=== PATIENT | female | born 1955 | race Caucasian/White ===

== ENCOUNTER 2018-10-10 12:07 | Day surgery (SDC) | payer OTHER ==
[~2018-10-10] VITALS: Ht 160 cm; Wt 86.2 kg
[~2018-10-10 12:07] MED LIST: ALBU90I INH; Alprazolam2 MG PO; Aspirin EC81 MG PO; CODGUAEL PO; Crestor20 MG PO; Dyazide 37.5-21 EACH PO; LOPE2C PO; LORA1 PO; LOVA40 PO; MAXIDE; MULVITA PO; NADO20 PO; NADO40 PO; POTCHL10ER PO; ROSU10TA; SERT50 PO; TRIHYD253B PO; [UNRECOGNIZED DRUG - OTHER] PO
--- NOTE | 2018-10-10 13:14 | NUR ---
10/10/18 1314 Mirna Harding PATIENT IS MENTALLY DISABLED, MOST OF THE QUESTIONS WERE ANSWRED BY HER SISTER. PATIENT IS VERY COOPERATIVE AND APPEARS HAPPY AND COMFORTABLE. CALL LIGHT AT BEDSIDE, SISTER WITH PATIENT, NO NEEDS AT THIS TIME
--- NOTE | 2018-10-10 15:23 | NUR ---
10/10/18 1523 Mirna Harding SALINE 5CC INJECTED AND EPINEPHRINE 6CC INJECTED INTO LARGE POLYP IN SIGMOID. WHEN THE EPINEPHRINE WAS INJECTED INTO THE POLYP AREA, THE PATIENT DID HAVE AN INCREASE IN HER BLOOD PRESSURE AND HEART RATE, HOWEVER THE PATIENT TOLERATED THIS ENTIRE PROCESS WITHOUT PROBLEMS. PATIENT DID WAKE UP BEFORE THE END OF THE PROCEDURE AND I WAS ABLE TO TALK WITH HER AND KEEP HER STILL WHILE THE DOCTOR FINISHED RESECTING A POLYP. PATIENT TOLERATED THE PROCEDURE.
== END 2018-10-10 15:10 | disposition home or self-care (01) ==
LOC: ORSCSDS 12:07
PROVIDERS: Internal Medicine Gastroenterology
PROC: 0DBN8ZX Excision of Sigmoid Colon, Via Natural or Artificial Opening Endoscopic, Diagnostic (ICD-10-PCS; principal; 2018-10-10 13:30)
PROC: 0DBM8ZX Excision of Descending Colon, Via Natural or Artificial Opening Endoscopic, Diagnostic (ICD-10-PCS; principal; 2018-10-10 13:30)
PROC: 0DBH8ZX Excision of Cecum, Via Natural or Artificial Opening Endoscopic, Diagnostic (ICD-10-PCS; principal; 2018-10-10 13:30)
DX: K62.5 Hemorrhage of anus and rectum (principal); D12.0 Benign neoplasm of cecum; D12.4 Benign neoplasm of descending colon; D12.5 Benign neoplasm of sigmoid colon; K63.5 Polyp of colon; I10 Essential (primary) hypertension; E78.5 Hyperlipidemia, unspecified; F79 Unspecified intellectual disabilities; Z79.899 Other long term (current) drug therapy
CPT/HCPCS: 88305; J7120

== ENCOUNTER 2019-06-14 09:18 | Day surgery (SDC) | payer OTHER ==
[~2019-06-14] VITALS: Ht 162.6 cm; Wt 86.6 kg
[~2019-06-14 09:18] MED LIST changes: +ATEN50 PO; +MEGA MULTIVIT PO
== END 2019-06-14 11:25 | disposition home or self-care (01) ==
LOC: ORSCSDS 09:18
PROVIDERS: Internal Medicine Gastroenterology
PROC: 0DBN8ZX Excision of Sigmoid Colon, Via Natural or Artificial Opening Endoscopic, Diagnostic (ICD-10-PCS; principal; 2019-06-14 10:30)
DX: Z12.11 Encounter for screening for malignant neoplasm of colon (principal); Z86.010 Personal history of colon polyps; K64.8 Other hemorrhoids; K57.30 Diverticulosis of large intestine without perforation or abscess without bleeding; I10 Essential (primary) hypertension; E03.9 Hypothyroidism, unspecified; E78.00 Pure hypercholesterolemia, unspecified; F41.9 Anxiety disorder, unspecified; Z79.82 Long term (current) use of aspirin; Z79.899 Other long term (current) drug therapy
CPT/HCPCS: 88305; J2704; J7120

== ENCOUNTER → 2020-12-04 | Outpatient (CLI) | payer OTHER ==
[2020-12-04 13:54] LABS: BASOPHILS ABSOLUTE AUTO 0.08 K/mm3 (0.00-0.23); BASOPHILS PERCENT AUTO 0 % (0-2); EOSINOPHILS ABSOLUTE AUTO 0.32 K/mm3 (0.00-0.68); EOSINOPHILS PERCENT AUTO 2 % (0-6); Hematocrit 42.3 % (33.0-51.0); Hemoglobin 14.1 g/dL (11.5-16.0); IMMATURE GRAN ABSOLUTE AUTO 0.13 K/mm3 (0.00-0.10); IMMATURE GRAN PERCENT AUTO 1 % (0-1); LYMPHOCYTES ABSOLUTE AUTO 1.34 K/mm3 (0.84-5.20); LYMPHOCYTES PERCENT AUTO 7 % (21-46); MONOCYTES ABSOLUTE AUTO 1.24 K/mm3 (0.16-1.47); MONOCYTES PERCENT AUTO 6 % (4-13); Mean Corpuscular HGB 27.6 pg (26.0-34.0); Mean Corpuscular HGB Conc 33.3 g/dL (31.5-36.5); Mean Corpuscular Volume 83 fL (80-100); Mean Platelet Volume 9.7 fL (9.1-12.4); NEUTROPHILS ABSOLUTE AUTO 16.97 K/mm3 (1.96-9.15); NEUTROPHILS PERCENT AUTO 85 % (41-73); Platelet Count 295 K/mm3 (150-400); RDW Standard Deviation 39.2 fL (35.1-46.3); White Blood Cell Count 20.08 K/mm3 (4.00-11.30)
[2020-12-04 14:06] LABS: Albumin/Globulin Ratio 0.6 (0.8-1.8); Bilirubin, Total 0.3 mg/dL (0.1-1.0); Bun/Creatinine Ratio 16.2 (12.0-20.0); Calcium, Blood 9.5 mg/dL (8.5-10.1); Creatinine, Blood 1.6 mg/dL (0.40-1.00); Globulin, Blood 4.9 g/dL (2.2-4.0); Potassium, Blood 3.6 mmol/L (3.5-5.5); Total Protein, Blood 7.9 g/dL (6.4-8.2)
== END | disposition home or self-care (01) ==
LOC: LAB SHORT 13:34 → LAB 13:34
PROVIDERS: Internal Medicine Hematology & Oncology
DX: D72.829 Elevated white blood cell count, unspecified (principal)
CPT/HCPCS: 80053; 85025

== ENCOUNTER → 2020-12-05 | Outpatient (CLI) | payer OTHER ==
[2020-12-05 15:42] LABS: International Normalized Ratio 1.26; Prothrombin Time Results 13.3 Sec (9.7-11.5)
== END | disposition home or self-care (01) ==
LOC: LAB 13:54 → LAB SHORT 13:54
PROVIDERS: Internal Medicine Hematology & Oncology
DX: K76.9 Liver disease, unspecified (principal); Z79.82 Long term (current) use of aspirin
CPT/HCPCS: 36415; 85610; 85730